=== PATIENT | male | born 1970 | race Caucasian/White ===

== ENCOUNTER 2016-05-03 14:46 | Emergency (ER) | payer OTHER ==
[~2016-05-03] VITALS: Ht 185.4 cm; Wt 99.8 kg
--- NOTE | 2016-05-03 15:29 | ED INFLUENZA/URI COMPLAINT ---
History of Present Illness General Chief Complaint: General Adult Stated Complaint: COUGHING UP BLOOD 95 RA Source: patient Exam Limitations: no limitations Vital Signs & Intake/Output Vital Signs & Intake/Output Vital Signs Date Time Temp Pulse Resp B/P Pulse O2 O2 Flow FiO2 Ox Delivery Rate 05/03 1753 97.8 94 18 134/86 96 Room Air 05/03 1703 98 Room Air 05/03 1612 97.7 98 22 132/83 96 Room Air 05/03 1451 98.1 101 20 161/94 98 Room Air Allergies Coded Allergies: No Known Allergies (05/03/16) Reconcile Medications Albuterol Sulfate (Ventolin Hfa) 90 MCG HFA.AER.AD 2 PUF INH Q4-6 PRN PRN SHORTNESS OF BREATH Benzonatate (Tessalon Perle) 100 MG CAPSULE 1 CAP PO TID PRN COUGH Methylprednisolone. (Medrol) 4 MG TAB.DS.PK 1 DP PO AD INFLAMMATION 6 on day 1 then reduce by one tablet daily until gone Robitussin AC (Guaifenesin-Codeine Syrup) 200 MG-20 MG/10 ML LIQUID 5 ML PO TID PRN COUGH Triage Note: PT TO ED URI S/S X A FEW WEEKS. STATES THIS AM HE COUGHED BLOOD X 4. STATES HE FEELS SOB, NO OBVIOUS RESP DISTRESS NOTED. RA SATS 98%. AFEBRILE. Triage Nurses Notes Reviewed? yes Onset: Gradual Duration: constant Timing: recent history Severity: moderate Severity Numbers: 5 No Modifying Factors: none HPI: Patient is a 46-year-old male with an unremarkable past medical history presents to emergency room with concerns stating that approximately 2 weeks ago he was complaining of it coryza symptoms such as nasal congestion, productive coughing, fever chills Patient states in the past 4-5 days he's been complaining of blood-tinged- RUST COLORED sputum upon episodes of coughing Has positive sick contacts patient is AN every day smoker (ELIA ZIMMER) Past History Travel History Traveled to [place] past 21 day No Medical History Any Pertinent Medical History? see below for history Cardiovascular: hypertension Surgical History Surgical History: non-contributory Psychosocial History What is your primary language Yi Tobacco Use: Current Daily Use Daily Tobacco Use Amount/Type: => 5 Cigarettes daily ETOH Use: denies use Illicit Drug Use: denies illicit drug use Family History Hx Contributory? No (ELIA ZIMMER) Review of Systems Review of Systems Constitutional: Reports: no symptoms. EENTM: Reports: see HPI. Respiratory: Reports: see HPI, cough. Cardiovascular: Reports: no symptoms. GI: Reports: no symptoms. Genitourinary: Reports: no symptoms. Musculoskeletal: Reports: no symptoms. Skin: Reports: no symptoms. Neurological/Psychological: Reports: no symptoms. Hematologic/Endocrine: Reports: no symptoms. Immunologic/Allergic: Reports: no symptoms. All Other Systems: Reviewed and Negative (ELIA ZIMMER) Physical Exam Physical Exam General Appearance: well developed/nourished, no apparent distress, alert Ears, Nose, Throat: normal ENT inspection, moist mucous membrane, hearing grossly normal, Tympanic normal Comments: Well-developed well-nourished person in no acute distress HEENT: Normal EENT exam, extraocular motion intact, no nystagmus. Pupils equally round and reactive to light and accommodation. Nose is atraumatic. External auditory canal and Tympanic membranes clear. Pharynx normal. No swelling or edema. Neck: Supple, no lymphadenopathy, normal range of motion without pain or tenderness Back: Nontender, no CVA tenderness. Cardiovascular: Regular rate and rhythms no murmurs rubs or gallops, normal JVP Respiratory: Chest nontender. No respiratory distress.breath sounds clear to auscultation bilaterally Extremity: No edema, no calf tenderness to palpation, normal and equal pulses. Neuro: Alert oriented x3, motor sensory normal, Skin: No appreciable rash on exposed skin, skin is warm and dry. Psych: Mood and affect is normal, memory and judgment is normal. Core Measures Severe Sepsis Present: No Septic Shock Present: No (ELIA ZIMMER) Progress Differential Diagnosis: influenza, meningitis, neutropenia, otitis, pneumonia, pharyngitis, sinusitis, PE Plan of Care: Orders Procedure Date/time Status D-DIMER 05/03 1608 Complete COMPREHENSIVE METABOLIC PANEL 05/03 1608 Complete CBC WITHOUT DIFFERENTIAL 05/03 1608 Complete Laboratory Tests 05/03/16 1652: Anion Gap 9, Estimated GFR > 60, BUN/Creatinine Ratio 17.1, Glucose 85, Calcium 9.1, Total Bilirubin 0.4, AST 22, ALT 53, Alkaline Phosphatase 72, Total Protein 6.7, Albumin 4.0, Globulin 2.7, Albumin/Globulin Ratio 1.5, D-Dimer < 200, CBC w Diff NO MAN DIFF REQ, RBC 4.99, MCV 86.6, MCH 29.1, RDW 14.2, MPV 9.1, Gran % 56.4, Lymphocytes % 32.4, Monocytes % 9.4 H, Eosinophils % 1.3, Basophils % 0.5 , Absolute Granulocytes 5.0, Absolute Lymphocytes 2.9, Absolute Monocytes 0.8 H , Absolute Eosinophils 0.1, Absolute Basophils 0, PUBS MCHC 33.6 Patient currently is in no apparent distress clear lungs auscultation denies any chest pain patient had unremarkable d-dimer essentially ruling out pulmonary embolism and due to his her present illness and exam findings there is suspicion of UPPER RESPIRATORY infection most likely viral etiology. Upon discharge patient looks well afebrile nontoxic appearing and will comply with discharge instructions and had no questions (ELIA ZIMMER) Initial ED EKG: none (ELIA ZIMMER) Departure Departure Disposition: HOME OR SELF CARE Condition: Stable Clinical Impression Primary Impression: Bronchitis Referrals: PATIENT HAS NO PRIMARY CARE DR (PCP/Family) Additional Instructions: As discussed begin the prescription of Tessalon Perles and Robitussin with codeine for cough. Begin the prescription of Medrol Dosepak for inflammation. Begin the prescription of Ventolin inhaler for shortness of breath. Please PRESENT to the registration in front of the emergency room to establish a primary care doctor and to follow-up as directed.. If symptoms worsen return to emergency room. Please discontinue smoking Prescriptions are waiting at [facility] Departure Forms: Customer Survey General Discharge Information Prescriptions: Current Visit Scripts Albuterol Sulfate (Ventolin Hfa) 2 PUF INH Q4-6 PRN PRN SHORTNESS OF BREATH #1 INHAL Methylprednisolone. (Medrol) 1 DP PO AD #1 DP 6 on day 1 then reduce by one tablet daily until gone Benzonatate (Tessalon Perle) 1 CAP PO TID PRN COUGH #21 CAP Robitussin AC (Guaifenesin-Codeine Syrup) 5 ML PO TID PRN COUGH #50 ML (ELIA ZIMMER) PA/DISTILLERY SUPERVISOR Co-Sign Statement Statement: ED Attending supervision documentation- [] I saw and evaluated the patient. I have also reviewed all the pertinent lab results and diagnostic results. I agree with the findings and the plan of care as documented in the PA's/DISTILLERY SUPERVISOR's documentation. [X] I have reviewed the ED Record and agree with the PA's/DISTILLERY SUPERVISOR's documentation. [] Additions or exceptions (if any) to the PAs/DISTILLERY SUPERVISOR's note and plan are summarized below: [] (SAVANAH CARREON DO)
[2016-05-03 17:06] LABS: ABSOLUTE BASOPHIL COUNT 0 /CUMM (0.0-0.2); ABSOLUTE EOSINOPHIL COUNT 0.1 /CUMM (0.0-0.7); ABSOLUTE LYMPH COUNT 2.9 /CUMM (1.2-3.4); ABSOLUTE MONOCYTE COUNT 0.8 /CUMM (0.10-0.60); BASOPHIL % 0.5 % (0.0-2.0); EOSINOPHIL % 1.3 % (0-5); GRANULOCYTE % 56.4 % (42.2-75.2); HEMATOCRIT 43.3 % (42-52); MEAN CORPUSCULAR HGB 29.1 PG (27.0-31.0); MEAN CORPUSCULAR HGB CONC 33.6 G/DL (33.0-37.0); MEAN CORPUSCULAR VOLUME 86.6 FL (80.0-94.0); MEAN PLATELET VOLUME 9.1 FL (7.4-10.4); PLATELET COUNT 199 /CUMM (130-400); RBC DISTRIBUTION WIDTH 14.2 % (11.5-14.5); RED BLOOD CELL CT 4.99 /CUMM (4.70-6.10); WHITE BLOOD CELL COUNT 8.8 /CUMM (4.8-10.8)
[2016-05-03] MEDS ORDERED: TESSALON PERLE100 M1 PO (17:52)
[2016-05-03] MEDS ORDERED: MEDROL4 M2 PO (17:52)
[2016-05-03] MEDS ORDERED: GUAIFENESIN-COD10 ML PO (17:52)
[2016-05-03] MEDS ORDERED: VENTOLIN HFA18 GM INH (17:52)
[2016-05-03 17:53] VITALS: BP 134/86
== END 2016-05-03 17:59 ==
LOC: ERH 14:46
PROVIDERS: Physician Assistant
DX: J40 Bronchitis, not specified as acute or chronic (principal); F17.210 Nicotine dependence, cigarettes, uncomplicated